=== PATIENT | female | born 1980 | race Caucasian/White ===

== ENCOUNTER 2021-04-09 19:11 | Emergency (ER) | payer BC ==
[2021-04-09 19:38] VITALS: BP 161/100
--- NOTE | 2021-04-09 19:38 | ED General ---
General Chief Complaint: Cardiac/General Problems Stated Complaint: DIZZY,LIGHTHEADED Nursing Triage Note: Pt states she has been feeling lightheaded and dizzy the past couple of days. Pt feels like her blood pressure has been running high. Pt has a hx of htn and takes Losartan. Source of Information: Patient Exam Limitations: No Limitations History of Present Illness Date Seen by Provider: Apr 09, 2021 Time Seen by Provider: 19:20 Initial Comments 40-year-old female presents with complaint of dizziness and elevated blood pressure. Patient with long-term history of hypertension, she takes losartan instead no change to her blood pressure medication or her medical condition. Last abnormal lab work done by her primary care doctor 2 months ago with no abnormality. Admits to recent significant stress and moving from [place] to [place] with a job change. States she has not taken any time off from all the pressure to get things done. Denies recent illness, fever chills, chest pain or shortness of air. Denies abdominal pain, nausea vomiting Allergies and Home Medications Allergies Coded Allergies: Penicillins (Verified Allergy, Unknown, 04/09/21) Patient Home Medication List Home Medication List Reviewed: Yes Review of Systems Review of Systems Constitutional: dizziness; No fever, No malaise, No weakness Respiratory: no symptoms reported Cardiovascular: no symptoms reported; No edema, No palpitations, No syncope Gastrointestinal: No abdominal pain, No loss of appetite, No nausea, No vomiting Musculoskeletal: no symptoms reported Psychiatric/Neurological: See HPI, Anxiety; Denies Headache, Denies Numbness, Denies Paresthesia, Denies Tremors, Denies Weakness Past Wmwaykh-Tcrzsz-Esddkm Hx Patient Social History Tobacco Use?: No Use of E-Cig and/or Vaping dev: No Alcohol Use?: No Pt feels they are or have been: No Physical Exam Vital Signs Vital Signs - First Documented 04/09/21 19:16 Temp 36.5 Pulse 92 Resp 18 B/P (MAP) 188/105 (132) Pulse Ox 100 O2 Delivery Room Air Capillary Refill : Less Than 3 Seconds Height, Weight, BMI Height: '" Weight: lbs. oz. kg; BMI Method: General Appearance: No Apparent Distress, WD/WN Neurologic/Psychiatric: Alert, Oriented x3, No Motor/Sensory Deficits, Normal Mood/Affect Progress/Results/Core Measures Suspected Sepsis SIRS Temperature: Pulse: 92 Respiratory Rate: 18 Blood Pressure 188 /105 Mean: 132 Results/Orders Vital Signs/I&O 04/09/21 19:16 Temp 36.5 Pulse 92 Resp 18 B/P (MAP) 188/105 (132) Pulse Ox 100 O2 Delivery Room Air Capillary Refill : Less Than 3 Seconds Blood Pressure Mean: 132 Progress Note : Progress Note Patient tearful and very anxious when first examined. Review of systems revealed she has significant life stressors the patient midst to not take any time off for herself or time to relax for the past many weeks. Patient comes significantly after period of counseling and advice on work responsibilities and the need to have some downtime for her mental wellbeing. She agrees and understands, declined any lab work. Patient seemed much relieved and blood pressure improved. Departure Impression Primary Impression: Stress and adjustment reaction Additional Impression: Hypertension Qualified Codes: I10 - Essential (primary) hypertension Disposition: 01 HOME, SELF-CARE Condition: Improved Departure-Patient Inst. Decision time for Depature: 19:37 Referrals: NO,LOCAL PHYSICIAN (PCP/Family) Primary Care Physician Patient Instructions: High Blood Pressure in Adults Add. Discharge Instructions: follow up with your Primary Doctor in 1 week if not improving All discharge instructions reviewed with patient and/or family. Voiced understanding. ANDREA SUERO DO Apr 09, 2021 19:38
== END 2021-04-09 19:39 | disposition home or self-care (01) ==
LOC: ER FS 19:13
DX: F43.20 Adjustment disorder, unspecified (principal); I10 Essential (primary) hypertension
CPT/HCPCS: 99283